=== PATIENT | female | born 1975 | race Caucasian/White ===

== ENCOUNTER 2018-11-07 14:05 | Emergency (ER) | payer BC ==
--- NOTE | 2018-11-07 16:14 | RAD REPORT ---
EXAM DESCRIPTION: RAD - Foot Left 3 View - 11/07/2018 4:00 pm CLINICAL HISTORY: Pain;Swelling COMPARISON: <Comparisons> FINDINGS: No acute fracture seen. Small calcaneal spurs.
--- NOTE | 2018-11-07 16:55 | ER ---
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 Unable to bear weight. Transition of care: patient was not received from another setting of care. Onset of symptoms was November 07, 2018. Risk Assessment: Do you want to hurt yourself or someone else? Patient reports no desire to harm self or others. Initial Sepsis Screen: Does the patient meet any 2 criteria? No. Patient's initial sepsis screen is negative. Does the patient have a suspected source of infection? No. Patient's initial sepsis screen is negative. Care prior to arrival: None. 14:13 Method Of Arrival: Wheelchair 14:13 Acuity: CHARLES 4 hb Triage Assessment: 16:20 General: Appears. wh 16:22 General: Behavior is calm, cooperative. Musculoskeletal: Circulation, motion, and wh sensation intact. Injury Description: swelling. [employer]: 16:23 LMP N/A - wh Historical: - Allergies: 14:15 No Known Allergies; hb - Home Meds: 14:15 Adderall XR Oral [Active]; Doxepin Oral [Active]; levothyroxine oral [Active]; hb Metoprolol Tartrate Oral [Active]; Ondansetron Oral [Active]; Wellbutrin Oral [Active]; Zoloft Oral [Active]; - PMHx: 14:15 Depression; Hypothyroidism; hb - PSHx: 14:15 Colon Resection; Kidney stents; hb - Immunization history:: Adult Immunizations up to date. - Social history:: Smoking status: Patient/guardian denies using tobacco. - Ebola Screening: : No symptoms or risks identified at this time. Screenin:20 Abuse screen: Denies threats or abuse. Denies injuries from another. Nutritional wh screening: No deficits noted. Tuberculosis screening: No symptoms or risk factors identified. Fall Risk None identified. Assessment: 16:20 General: Appears in no apparent distress. Pain: Complains of pain in left ankle Pain wh does not radiate. Pain currently is 8 out of 10 on a pain scale. Quality of pain is described as aching, Pain began 2 hours ago. Neuro: Level of Consciousness is awake, alert, obeys commands. Cardiovascular: Capillary refill < 3 seconds. Respiratory: Airway is patent Respiratory effort is even, unlabored, Respiratory pattern is regular, symmetrical. GI: Abdomen is flat, non-distended. : No signs and/or symptoms were reported regarding the genitourinary system. EENT: No signs and/or symptoms were reported regarding the EENT system. Derm: Skin is intact, is healthy with good turgor, Skin is pink, warm \T\ dry. normal. Musculoskeletal: Range of motion: limited in left ankle. Vital Signs: 14:15 BP 178 / 90; Pulse 88; Resp 16; Temp 96.8; Pulse Ox 100% on R/A; Weight 70.31 kg; hb Height 5 ft. 2 in. (157.48 cm); Pain 8/10; 16:15 BP 160 / 109; Pulse 86; Resp 18; Pulse Ox 99% on R/A; wh 14:15 Body Mass Index 28.35 (70.31 kg, 157.48 cm) hb ED Course: 14:08 Patient arrived in ED. rg4 14:14 Triage completed. hb 14:15 Arm band placed on. hb 15:00 Al[facility]-C [facility]. kb 15:00 Josue Bañuelos MD is Attending Physician. kb 16:05 Foot Left 3 View XRAY In Process Unspecified. EDMS 16:06 Tamia Acuña is Primary Nurse. 16:23 Patient has correct armband on for positive identification. Bed in low position. Call light in reach. Side rails up X 1. Pulse ox on. NIBP on. 17:00 Ankle Left 2 View XRAY In Process Unspecified. EDMS 17:05 No provider procedures requiring assistance completed. Patient did not have IV access during this emergency room visit. Administered Medications: 17:00 Drug: [place] 5 mg-325 mg 1 tabs Route: PO; 17:06 Follow up: Response: No adverse reaction; RASS: Alert and Calm (0) Outcome: 16:54 Discharge ordered by . kb 17:05 Discharged to home with crutches, with family. wh 17:05 Condition: good 17:05 Discharge instructions given to patient, Instructed on discharge instructions, follow up and referral plans. crutch walking, POC Foot sprain Demonstrated understanding of instructions, follow-up care, crutch walking, POC 17:07 Patient left the ED. Signatures: Dispatcher [employer] EDAlondra Watson, CLOTH SHEARER-C CLOTH SHEARER-CkNaa Hendrickson RN RN hb Garcia, Rubi rg4 Tamia Acuña
--- NOTE | 2018-11-07 16:55 | EDPHYS ---
Physician Documentation [facility] Name: Kristen Acosta Age: 43 yrs Sex: Female : 1975 Arrival Date: 11/07/2018 Time: 14:08 Bed 30 Private MD: ED Physician Josue Bañuelos HPI: 11/07 16:37 This 43 yrs old Female presents to ER via Wheelchair with complaints of Foot kb Injury. 16:37 The patient presents with a contusion, an injury, pain, swelling, tenderness. The kb complaints affect the lateral aspect of left foot and left lateral ankle. Context: The problem was sustained at a relative's home, resulted from stepped off of stair wrong and twisted foot, the patient is not able to bear weight, must have assistance, Problem is a result from a previous injury: No. Onset: The symptoms/episode began/occurred today. Modifying factors: The symptoms are alleviated by nothing. the symptoms are aggravated by weight bearing. Associated signs and symptoms: Pertinent positives: swelling. Treatment prior to arrival includes: no previous treatment. Severity of symptoms: At their worst the symptoms were moderate, in the emergency department the symptoms are unchanged. The patient has not experienced similar symptoms in the past. The patient has not recently seen a physician. 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 - Social history:: Smoking status: Patient/guardian denies using tobacco. - Ebola Screening: : No symptoms or risks identified at this time. ROS: 16:37 Constitutional: Negative for fever, chills, and weight loss, Cardiovascular: Negative kb for chest pain, palpitations, and edema, Respiratory: Negative for shortness of breath, cough, wheezing, and pleuritic chest pain, Abdomen/GI: Negative for abdominal pain, nausea, vomiting, diarrhea, and constipation, Back: Negative for injury and pain, Neuro: Negative for headache, weakness, numbness, tingling, and seizure. 16:37 MS/extremity: Positive for injury or acute deformity, contusion, decreased range of motion, ecchymosis, pain, swelling, tenderness. Exam: 16:36 Constitutional: This is a well developed, well nourished patient who is awake, alert, kb and in no acute distress. Head/Face: Normocephalic, atraumatic. Chest/axilla: Normal chest wall appearance and motion. Nontender with no deformity. No lesions are appreciated. Cardiovascular: Regular rate and rhythm with a normal S1 and S2. No gallops, murmurs, or rubs. Normal PMI, no JVD. No pulse deficits. Respiratory: Lungs have equal breath sounds bilaterally, clear to auscultation and percussion. No rales, rhonchi or wheezes noted. No increased work of breathing, no retractions or nasal flaring. Abdomen/GI: Soft, non-tender, with normal bowel sounds. No distension or tympany. No guarding or rebound. No evidence of tenderness throughout. Back: No spinal tenderness. No costovertebral tenderness. Full range of motion. Neuro: Awake and alert, GCS 15, oriented to person, place, time, and situation. Cranial nerves II-XII grossly intact. Motor strength 5/5 in all extremities. Sensory grossly intact. Cerebellar exam normal. Normal gait. 16:36 Musculoskeletal/extremity: Extremities: grossly normal except: noted in the left lateral ankle and lateral aspect of left foot: contusion, decreased ROM, ecchymosis, pain, swelling, tenderness, ROM: limited active range of motion due to pain, in the left ankle, Circulation is intact in all extremities. Sensation intact. Weight bearing: is unable to bear weight. Vital Signs: 14:15 BP 178 / 90; Pulse 88; Resp 16; Temp 96.8; Pulse Ox 100% on R/A; Weight 70.31 kg; hb Height 5 ft. 2 in. (157.48 cm); Pain 8/10; 16:15 BP 160 / 109; Pulse 86; Resp 18; Pulse Ox 99% on R/A; wh 14:15 Body Mass Index 28.35 (70.31 kg, 157.48 cm) hb MDM: 16:07 Patient medically screened. kb 16:36 Data reviewed: vital signs, nurses notes. Data interpreted: Pulse oximetry: on room air kb is 99 %. Interpretation: normal. 16:54 Counseling: I had a detailed discussion with the patient and/or guardian regarding: the kb historical points, exam findings, and any diagnostic results supporting the discharge/admit diagnosis, radiology results, the need for outpatient follow up, a orthopedic surgeon, to return to the emergency department if symptoms worsen or persist or if there are any questions or concerns that arise at home. 11/07 14:18 Order name: Foot Left 3 View XRAY; Complete Time: 16:29 hb 11/07 16:23 Order name: Ankle Left 2 View XRAY 11/07 16:55 Order name: Vinod Wrap; Complete Time: 17:04 kb 11/07 16:55 Order name: Crutches; Complete Time: 17:04 kb Administered Medications: 17:00 Drug: [place] 5 mg-325 mg 1 tabs Route: PO; 17:06 Follow up: Response: No adverse reaction; RASS: Alert and Calm (0) Disposition: 19:04 Co-signature as Attending Physician, Josue Bañuelos MD. rn Disposition: 11/07/18 16:54 Discharged to Home. Impression: Sprain of foot. - Condition is Stable. - Discharge Instructions: Foot Sprain. - Medication Reconciliation Form, Thank You Letter, Antibiotic Education, Prescription Opioid Use form. - Follow up: Emergency Department; When: As needed; Reason: Worsening of condition. Follow up: Private Physician; When: 2 - 3 days; Reason: Recheck today's complaints, Continuance of care, Re-evaluation by your physician. Signatures: Dispatcher [employer] EDWI Alondra Davis, MANAGER CODING-C MANAGER CODING-Josue Genao MD MD rn Baxter, Heather, RN RN Tamia Acuña Corrections: (The following items were deleted from the chart) 17:07 16:54 11/07/2018 16:54 Discharged to Home. Impression: Sprain of foot. Condition is Stable. Forms are Medication Reconciliation Form, Thank You Letter, Antibiotic Education, Prescription Opioid Use. Follow up: Emergency Department; When: As needed; Reason: Worsening of condition. Follow up: Private Physician; When: 2 - 3 days; Reason: Recheck today's complaints, Continuance of care, Re-evaluation by your physician. kb
[2018-11-07] MEDS ORDERED: HYDROCODONE/APAP 5/325 MG TAB ONE (16:58)
--- NOTE | 2018-11-07 17:09 | RAD REPORT ---
EXAM DESCRIPTION: RAD - Ankle Left 2 View - 11/07/2018 4:58 pm CLINICAL HISTORY: PAIN COMPARISON: Foot Left 3 View dated 11/07/2018 FINDINGS: Soft tissue swelling is seen about the ankle. Small calcaneal spurs are present. No acute fracture is present.
[2018-11-07 17:34] VITALS: BP 160/109; O2SAT 99
[2018-11-07 17:36] VITALS: TEMP 96.8
== END 2018-11-07 17:07 | disposition home or self-care (01) ==
LOC: ER 14:05
DX: S93.602A Unspecified sprain of left foot, initial encounter (principal); X50.1XXA Overexertion from prolonged static or awkward postures, initial encounter; Y93.89 Activity, other specified; Y92.89 Other specified places as the place of occurrence of the external cause; E03.9 Hypothyroidism, unspecified; F32.9 Major depressive disorder, single episode, unspecified
CPT/HCPCS: 99284